=== PATIENT | female | born 1990 | race African-American/Black ===

== ENCOUNTER 2016-12-01 14:01 | Emergency (ER) | payer OTHER ==
[~2016-12-01] VITALS: Ht 170.2 cm; Wt 90.0 kg
[~2016-12-01 14:01] MED LIST: BACTRIM,SEPT1 TABLET PO; BENADRYL25 MG PO; CILOXAN 0.1 APPLICAT RIGHT EYE; CIPRO500 MG PO; CLINDAMYCIN HC300 MG PO; FLAGYL500 MG PO; INDOCIN25 MG PO; NAPROSYN500 MG PO; NAPROXEN500 MG PO; NITROFURANTOIN100 MG PO; NOHOMEMEDS; NORCO 5/3251 TABLET PO; PREDNISONE20 MG PO; PRENATAL VITAM1 EA11 PO; PROVENTIL17 GM IH; PYRIDIUM100 MG PO; TYLENOL EXTRA500 MG PO; VICODIN 5-3001 EACH PO; ZANTAC150 MG PO; ZITHROMAX Z-PA250 MG PO; ZOFRAN4 MG PO
[2016-12-01 14:06] VITALS: BP 133/87
[2016-12-01] MEDS ORDERED: CLEOCIN150 MG PO (15:30)
[2016-12-01] MEDS ORDERED: TRAMADOL HCL50 MG PO (15:30)
== END 2016-12-01 15:50 | disposition home or self-care (01) ==
LOC: EME 14:01
DX: K04.4 Acute apical periodontitis of pulpal origin (principal); S02.5XXA Fracture of tooth (traumatic), initial encounter for closed fracture; K08.89 Other specified disorders of teeth and supporting structures; F17.200 Nicotine dependence, unspecified, uncomplicated; Z88.0 Allergy status to penicillin; Z91.041 Radiographic dye allergy status
CPT/HCPCS: 99281; 99284

== ENCOUNTER 2017-09-19 08:49 | Outpatient (CLI) | payer OTHER ==
[~2017-09-19] VITALS: Ht 167.6 cm; Wt 92.5 kg
[~2017-09-19 08:49] MED LIST changes: +CLEOCIN150 MG PO; +TRAMADOL HCL50 MG PO
[2017-09-19 09:15] VITALS: BP 115/59
[2017-09-19 10:24] LABS: BASOPHIL (%) 0.3 % (0-1); EOSINOPHIL (%) 0.3 % (0-5); HEMATOCRIT 37.1 % (36.0-46.0); HEMOGLOBIN 12.7 G/DL (11.9-15.5); IMMATURE GRANULOCYTE (%) 0.3 % (0.0-0.7); LYMPHOCYTE (%) 17.3 % (15-42); LYMPHOCYTE COUNT 1.3 K/uL (1.0-2.8); MCH 33.2 PG (29.0-34.0); MCHC 34.2 G/DL (30.0-36.0); MCV 96.9 FL (83-99); MONOCYTE (%) 6.9 % (3-12); MONOCYTE COUNT 0.5 K/uL (0-0.8); NEUTROPHIL (%) 74.9 % (45-76); NEUTROPHIL COUNT 5.8 K/uL (1.8-6.4); PLATELET COUNT 127 K/uL (156-360); RBC DIS.WIDTH-CV 13.1 % (11.8-14.6); RBC DIS.WIDTH-SD 46.5 % (39-53); RED BLOOD COUNT 3.83 M/uL (3.80-5.20); WHITE BLOOD COUNT 7.7 K/uL (4.1-10.2)
[2017-09-19 10:30] LABS: ALBUMIN 3.4 g/dL (3.2-4.8); CHLORIDE 108 mEq/L (99-109); POTASSIUM 3.7 mEq/L (3.7-5.4); SODIUM 139 mEq/L (136-147)
[2017-09-19 10:33] LABS: GLUCOSE 76 mg/dL (70-99); TOTAL PROTEIN 5.7 g/dL (6.4-8.3)
[2017-09-19 10:35] LABS: TOTAL BILIRUBIN 0.2 mg/dL (0.0-1.0)
[2017-09-19 10:36] LABS: ALKALINE PHOSPHATASE 96 IU/L (3-129); CREATININE 0.6 mg/dL (0.6-1.3); GFR ESTIMATE (CALCULATED) > 59 mL/min/
[2017-09-19 10:37] LABS: UREA NITROGEN (BUN) 8 mg/dL (9-23)
[2017-09-19 10:38] LABS: AST (GOT) 15 IU/L (2-34)
[2017-09-19 10:39] LABS: ALT (GPT) 10 IU/L (3-49)
[2017-09-19 12:12] LABS: SOURCE SWAB
[2017-09-19 12:49] LABS: APPEARANCE SL.HAZY ((CLEAR)); BILIRUBIN NEGATIVE; BLOOD NEGATIVE; COLOR YELLOW ((YELLOW)); GLUCOSE (STRIP) NEGATIVE; KETONES NEGATIVE; LEUKOCYTES TRACE; NITRITE NEGATIVE; PROTEIN (STRIP) 30; SPECIFIC GRAVITY 1.025 (1.000-1.030); UROBILINOGEN 0.2 MG/DL (0.2-1.0)
[2017-09-19 12:56] LABS: AMPHETAMINE NEGATIVE (500 ng/mL); BENZODIAZEPINES NEGATIVE (150 ng/mL); COCAINE NEGATIVE (150 ng/mL); METHADONE NEGATIVE (200 ng/mL); METHAMPHETAMINE NEGATIVE (500 ng/mL); OPIATES (MORPHINE) NEGATIVE (100 ng/mL); PHENCYCLIDINE NEGATIVE (25 ng/mL); THC CANNABINOIDS PRESUMPTIVE POSITIVE (50 ng/mL); TRICYCLIC ANTIDEPRESSANTS NEGATIVE (300 ng/mL)
[2017-09-19 12:57] LABS: BARBITURATES NEGATIVE (200 ng/mL); BUPRENORPHINE NEGATIVE (10 ng/mL); OXYCODONE NEGATIVE (100 ng/mL); PROPOXYPHENE NEGATIVE (300 ng/mL)
[2017-09-19 13:02] LABS: BACTERIA RARE /HPF; EPITHELIAL CELLS 1+ /HPF; MUCUS TRACE /LPF; RED BLOOD CELLS 0-5 /HPF (0-5); WHITE BLOOD CELLS 0-5 /HPF (0-5)
[2017-09-19 14:04] VITALS: BP 97/55
[2017-09-19 20:00] LABS: CANDIDA DNA PROBE NEGATIVE; GARDNERELLA DNA PROBE POSITIVE; TRICHOMONAS DNA PROBE NEGATIVE
== END 2017-09-19 15:23 | disposition home or self-care (01) ==
LOC: LDRP-OP 08:49 → 2WEST 08:50
PROVIDERS: Advanced Practice Midwife; Obstetrics & Gynecology
DX: O26.893 Other specified pregnancy related conditions, third trimester (principal); N89.8 Other specified noninflammatory disorders of vagina; O99.89 Other specified diseases and conditions complicating pregnancy, childbirth and the puerperium; R11.2 Nausea with vomiting, unspecified; O99.333 Smoking (tobacco) complicating pregnancy, third trimester; F17.200 Nicotine dependence, unspecified, uncomplicated; Z86.19 Personal history of other infectious and parasitic diseases; O99.513 Diseases of the respiratory system complicating pregnancy, third trimester; J45.909 Unspecified asthma, uncomplicated; Z3A.35 35 weeks gestation of pregnancy; Z81.8 Family history of other mental and behavioral disorders; Z82.49 Family history of ischemic heart disease and other diseases of the circulatory system; Z83.49 Family history of other endocrine, nutritional and metabolic diseases
CPT/HCPCS: 59025; 76805; 80053; 81003; 84999; 85025; 87086; 87480; 87491; 87510; 87591; 87660; G0378; J2405

== ENCOUNTER 2017-09-28 17:02 | Inpatient (IN) | payer OTHER ==
[2017-09-28 17:19] VITALS: BP 137/82
[2017-09-28 18:23] LABS: AMPHETAMINE NEGATIVE (500 ng/mL); BARBITURATES NEGATIVE (200 ng/mL); BENZODIAZEPINES NEGATIVE (150 ng/mL); BUPRENORPHINE NEGATIVE (10 ng/mL); COCAINE NEGATIVE (150 ng/mL); METHADONE NEGATIVE (200 ng/mL); METHAMPHETAMINE NEGATIVE (500 ng/mL); OPIATES (MORPHINE) NEGATIVE (100 ng/mL); OXYCODONE NEGATIVE (100 ng/mL); PHENCYCLIDINE NEGATIVE (25 ng/mL); PROPOXYPHENE NEGATIVE (300 ng/mL); THC CANNABINOIDS PRESUMPTIVE POSITIVE (50 ng/mL); TRICYCLIC ANTIDEPRESSANTS NEGATIVE (300 ng/mL)
[2017-09-28 18:53] LABS: BASOPHIL (%) 0.1 % (0-1); EOSINOPHIL (%) 0.1 % (0-5); HEMATOCRIT 37.3 % (36.0-46.0); HEMOGLOBIN 12.7 G/DL (11.9-15.5); IMMATURE GRANULOCYTE (%) 0.3 % (0.0-0.7); LYMPHOCYTE (%) 16.5 % (15-42); LYMPHOCYTE COUNT 1.8 K/uL (1.0-2.8); MCH 32.9 PG (29.0-34.0); MCV 96.6 FL (83-99); MONOCYTE (%) 6.8 % (3-12); MONOCYTE COUNT 0.8 K/uL (0-0.8); NEUTROPHIL (%) 76.2 % (45-76); NEUTROPHIL COUNT 8.5 K/uL (1.8-6.4); PLATELET COUNT 162 K/uL (156-360); RBC DIS.WIDTH-CV 13.2 % (11.8-14.6); RBC DIS.WIDTH-SD 46.7 % (39-53); RED BLOOD COUNT 3.86 M/uL (3.80-5.20); WHITE BLOOD COUNT 11.1 K/uL (4.1-10.2)
[2017-09-28 20:30] VITALS: BP 117/69
[2017-09-28 21:20] VITALS: BP 162/101
[2017-09-28 21:23] VITALS: BP 151/97
[2017-09-28 21:31] VITALS: BP 151/94
[2017-09-28 22:11] VITALS: BP 119/61
[2017-09-29] VITALS (8 sets, daily range): BP systolic 120–148; BP diastolic 64–95
[2017-09-30 07:30] LABS: BASOPHIL (%) 0.4 % (0-1); EOSINOPHIL (%) 1.2 % (0-5); EOSINOPHIL COUNT 0.1 K/uL (0-0.3); HEMATOCRIT 39.1 % (36.0-46.0); HEMOGLOBIN 12.8 G/DL (11.9-15.5); IMMATURE GRANULOCYTE (%) 0.7 % (0.0-0.7); LYMPHOCYTE (%) 24.6 % (15-42); LYMPHOCYTE COUNT 1.9 K/uL (1.0-2.8); MCH 33.6 PG (29.0-34.0); MCHC 32.7 G/DL (30.0-36.0); MONOCYTE (%) 6.7 % (3-12); MONOCYTE COUNT 0.5 K/uL (0-0.8); NEUTROPHIL (%) 66.4 % (45-76); PLATELET COUNT 158 K/uL (156-360); RBC DIS.WIDTH-CV 13.3 % (11.8-14.6); RED BLOOD COUNT 3.81 M/uL (3.80-5.20); WHITE BLOOD COUNT 7.6 K/uL (4.1-10.2)
[2017-09-30 07:32] LABS: MCV 102.6 FL (83-99)
[2017-09-30 07:50] VITALS: BP 131/76
[2017-09-30 15:48] VITALS: BP 138/75
[2017-10-01 00:14] VITALS: BP 127/75
[2017-10-01 07:43] VITALS: BP 124/59
[2017-10-01] MEDS ORDERED: IBUPROFEN800 MG PO (10:39)
== END 2017-10-01 12:18 | disposition home or self-care (01) | DRG 775 ==
LOC: LDRP-OP 17:02 → 2WEST 17:03 → LDRP-OP 11-20 15:27
PROVIDERS: Advanced Practice Midwife
PROC: 10907ZC Drainage of Amniotic Fluid, Therapeutic from Products of Conception, Via Natural or Artificial Opening (ICD-10-PCS; 2017-09-28)
PROC: 10E0XZZ Delivery of Products of Conception, External Approach (ICD-10-PCS; principal; 2017-09-29)
DX: O60.14X1 Preterm labor third trimester with preterm delivery third trimester, fetus 1 (principal); O99.354 Diseases of the nervous system complicating childbirth; F33.9 Major depressive disorder, recurrent, unspecified; O99.824 Streptococcus B carrier state complicating childbirth; O99.344 Other mental disorders complicating childbirth; Z3A.36 36 weeks gestation of pregnancy; Z37.0 Single live birth; F12.10 Cannabis abuse, uncomplicated; F41.9 Anxiety disorder, unspecified; Z88.0 Allergy status to penicillin; O12.04 Gestational edema, complicating childbirth; R10.2 Pelvic and perineal pain; R11.10 Vomiting, unspecified; J45.909 Unspecified asthma, uncomplicated; O99.52 Diseases of the respiratory system complicating childbirth; G43.909 Migraine, unspecified, not intractable, without status migrainosus; Z91.041 Radiographic dye allergy status; Z87.440 Personal history of urinary (tract) infections; Z81.8 Family history of other mental and behavioral disorders
CPT/HCPCS: 84999; 85025; G0378; J1050; J3370; J7120

== ENCOUNTER 2017-12-10 04:30 | Emergency (ER) | payer OTHER ==
[~2017-12-10] VITALS: Ht 170.2 cm; Wt 91.5 kg
[~2017-12-10 04:30] MED LIST changes: +IBUPROFEN800 MG PO
[2017-12-10] MEDS ORDERED: NORCO 7.5/321 TABLET PO (06:18)
[2017-12-10] MEDS ORDERED: MOTRIN800 MG PO (06:18)
[2017-12-10 06:29] VITALS: BP 130/73
== END 2017-12-10 06:30 | disposition home or self-care (01) ==
LOC: EME 04:30
DX: S63.641A Sprain of metacarpophalangeal joint of right thumb, initial encounter (principal); W50.0XXA Accidental hit or strike by another person, initial encounter; Z88.0 Allergy status to penicillin; Z91.041 Radiographic dye allergy status
CPT/HCPCS: 73140; 99281; 99284